=== PATIENT | female | born 1985 | race Two or more races ===

== ENCOUNTER → 2024-05-27 | Outpatient (BNVA) | payer BC, SELFPAY | END | disposition home or self-care (01) | PROVIDERS: PCP Registered Nurse; Referring Provider Registered Nurse; Visit Provider Urology | DX: N20.0 Calculus of kidney (principal); Z87.440 Personal history of urinary (tract) infections; E66.9 Obesity, unspecified; Z68.28 Body mass index [BMI] 28.0-28.9, adult | CPT/HCPCS: 81003; 99212; G0463 ==

== ENCOUNTER → 2024-06-21 | Outpatient (CLI) | payer BC, SELFPAY ==
--- NOTE | 2024-06-21 13:00 | XR_ITS ---
Examination: Retroperitoneal ultrasound, complete Technique: Multiple high resolution grayscale images of the retroperitoneum obtained, including kidneys and bladder. Exam date and time:June 21, 2024 1326 hours INDICATIONS: Flank pain 2 months FINDINGS: Right kidney 10.6 cm renal cortex 2.5 cm Midpole 5 mm calculus Left kidney 11.4 cm cortex 2.3 cm Lower pole 0.75 cm calculus No hydronephrosis No bladder mass Contracted urinary bladder IMPRESSION: Bilateral nonobstructing renal calculi
[2024-06-21 14:42] LABS: Alanine Aminotransferase 39 U/L (10-49); Albumin, Serum 4.8 gm/dL (3.5-5.0); Alkaline Phosphatase 76 U/L (46-116); Anion Gap 8 (7-16); Aspartate Amino Transferase 29 U/L (0-34); BUN/Creatinine Ratio 13 Ratio (12-20); Bilirubin,Total 0.2 mg/dL (0.3-1.2); Blood Urea Nitrogen 10 mg/dL (9-23); Calcium 9.6 mg/dL (8.3-10.6); Calcium (Corrected) 9.6 mg/dL (8.5-10.1); Carbon Dioxide 29.1 mMol/L (20.0-31.0); Chloride 100 mMol/L (98-107); Creatinine (Component) 0.8 mg/dL (0.6-1.3); Globulin 2.4 gm/dL (2.3-3.5); Glucose 90 mg/dL (74-106); Osmolality,Calculated 272 (275-295); Potassium 4.1 mMol/L (3.4-5.1); Sodium 137 mMol/L (136-145); Total Protein 7.2 gm/dL (5.7-8.2); eGFR > 60 See Note
== END | disposition home or self-care (01) ==
LOC: CDIM 12:46 → COPL 13:45
PROVIDERS: PCP Registered Nurse; Referring Provider Urology; Visit Provider Urology
DX: N20.0 Calculus of kidney (principal)
CPT/HCPCS: 36415; 76770; 80053

== ENCOUNTER 2024-09-08 09:25 | Emergency (ER) | payer BC, MEDICAID, SELFPAY ==
[2024-09-08 09:37] VITALS: BP 156/92; PULSE 67; RESP 17; TEMP 36; O2SAT 100
[2024-09-08 09:48] VITALS: BMI 28.7
--- NOTE | 2024-09-08 09:58 | XR_ITS ---
Examination: CT abdomen and pelvis without contrast. Coronal 3-D reconstructions. Sagittal 2-D reconstructions. Date and time of exam:September 08, 2025 1158 hrs. Comparison April 2023 Indications: Intermittent flank pain several days CTDI: vol (mGy): 10.3 DLP: (mGycm): 545 Technique: Axial images of the abdomen have been obtained, 3 mm slice thickness Intravenous contrast material has not been administered. Low dose protocols were performed. One or more of the following dose reduction techniques were used; automated exposure control, adjustment of the mA and/or KV according to patient size, use of iterative reconstruction technique. Findings: No focal liver or splenic lesions Gallbladder wall is thickened with tiny gallstones No pancreatic mass Bilateral renal calculi, the largest 5 mm in the lower pole left kidney No hydronephrosis or ureteral calculi Small fat-containing umbilical hernia Normal appendix No bowel obstruction Contracted urinary bladder 3 mm L5-S1 central lumbar disc bulge Impression: Recommend hepatobiliary sonography to confirm calculus cholecystitis Bilateral nonobstructing renal calculi Normal appendix No bowel obstruction
[2024-09-08 09:59] VITALS: PULSE 66; RESP 21; O2SAT 99
[2024-09-08 10:00] VITALS: BP 168/81; PULSE 64; RESP 14; O2SAT 100
[2024-09-08] MEDS: KETOROLAC INJ 30 MG/ML VIAL 15 MG IVP ×2 (10:10→15:36)
[2024-09-08] MEDS: ONDANSETRON INJ 2 MG/ML INJ 2 ML 8 MG IVP (10:12)
[2024-09-08] MEDS: HYDROmorphone INJ 2 MG/ML VIAL 0.5 MG IVP (10:13)
[2024-09-08] MEDS: SODIUM CHLORIDE 0.9% 1000 ML 1,000 ML 999 ML IV (10:14)
[2024-09-08 10:23] LABS: Basophils % (Auto) 0 % (0-2.5); Eosinophils # (Auto) 0.1 Thou/mm3 (0.0-0.5); Eosinophils % (Auto) 1 % (0-10); Hematocrit 37.9 % (36.0-46.0); Hemoglobin 13.3 g/dL (12.0-16.0); Immature Granulocytes % (Auto) 0 % (0-0); Immature Granulocytes Auto 0.02 Thou/mm3 (0.00-0.00); Lymphocytes # (Auto) 2.1 Thou/mm3 (1.0-4.8); Lymphocytes % (Auto) 17 % (10-50); Mean Corpuscular HGB Conc 35.1 g/dl (31.0-37.0); Mean Corpuscular Hemoglobin 30.2 pg (25.0-35.0); Mean Corpuscular Volume 86 fL (80-100); Monocytes # (Auto) 0.7 Thou/mm3 (0.0-0.8); Monocytes % (Auto) 6 % (0-12); Neutrophils # (Auto) 9.3 Thou/mm3 (1.8-7.7); Neutrophils % (Auto) 76 % (37-80); Nucleated Red Blood Cell % 0 /100 WBC (0); Platelet Count 270 Thou/mm3 (140-440); RDW Standard Deviation 38.3 fL (36.4-46.3); Red Blood Count 4.41 Miln/mm3 (4.00-5.20); White Blood Count 12.2 Thou/mm3 (3.6-11.0)
[2024-09-08 10:33] LABS: HCG,Qualitative Serum Negative
--- NOTE | 2024-09-08 10:37 | PD.EDABDPN ---
ED Abdominal Pain RME/HPI General Chief Complaint: Abdominal Pain Stated complaint: VOMITING, EXTREME PAIN RLQ ABD SINCE 6AM Time seen by provider: 09/08/24 09:56 Arrival date/time: 09/08/24 09:25 Limitations: no limitations RME / HPI RME / HPI narrative: 38 year old female with history of kidney stones presents to the ED for evaluation of right flank pain beginning at 06:00 AM today. Pain described as colicky in sensation, located most to the right flank with radiation around to right lower abdomen, rating as moderate-severe. Accompanied by nausea and vomiting. Reports pain today is similar to previous episode of kidney stones. Denies fevers, chills, sweats, diarrhea, hematuria, or dysuria. Related Data Home Medications ?Medication ?Instructions ?Recorded ?Confirmed lansoprazole 30 mg capsule,delayed 30 mg PO QDAY 07/28/19 05/27/24 release cetirizine 10 mg tablet (Zyrtec) 10 mg PO QDAY PRN 07/13/23 05/27/24 hydroxyzine HCl 25 mg tablet 25 mg PO QHS PRN 07/13/23 05/27/24 nitrofurantoin 100 mg PO QDAY 07/13/23 05/27/24 monohydrate/macrocrystals 100 mg capsule (Macrobid) venlafaxine 150 mg 150 mg PO QDAY 07/13/23 05/27/24 capsule,extended release 24 hr (Effexor XR) Allergies Allergy/AdvReac Type Severity Reaction Status Date / Time latex Allergy Intermediate Rash Verified 09/08/24 09:49 Review of Systems Review of Systems Systems Reviewed: All systems reviewed, normal except as documented Past Medical History Past Medical History GASTROINTESTINAL: Positive Gastroesophageal Reflux Disease GENITOURINARY: Positive Kidney Stones Family History FAMILY HISTORY: Positive Family Cardiac Disorders Social History SMOKING STATUS: Never smoker SUBSTANCE USE: does not use ED Exam General Limitations: Present no limitations General appearance: Present alert and other (appears to be in pain) Head Head exam: Present atraumatic Eye Eye exam: Present normal appearance, PERRL and EOMI ENT ENT exam: Present normal exam, normal oropharynx and mucous membranes moist Neck Neck exam: Present normal inspection, full ROM and trachea midline Chest Chest inspection: Present normal inspection and symmetric chest wall rise Respiratory Respiratory exam: Present normal lung sounds bilaterally Cardiovascular Cardiovascular exam: Present regular rate, normal rhythm and normal heart sounds Abdominal Exam Abdominal exam: Present soft, tenderness (right flank tenderness to palpation ) and normal bowel sounds Extremities Exam Extremities exam: Present normal inspection and full ROM Back Exam Back exam: Present normal inspection and full ROM Neurological Exam Neurological exam: Present alert, oriented X3 and CN II-XII intact Psychiatric Psychiatric exam: Present normal affect and normal mood Skin Skin exam: Present warm, dry, intact and normal color Course Quality Measures none Orders Category Date Time Status Wind Field Manager NOW Care 09/08/24 09:59 Active Continuous Pulse Oximetry NOW Care 09/08/24 09:59 Completed Insert IV NOW Care 09/08/24 09:[address] abdomen pelvis wo con Stat Exams 09/08/24 09:58 Completed US gall bladder Stat Exams 09/08/24 14:03 Taken CBC Stat Lab 09/08/24 10:09 Completed Comprehensive Metabolic Panel Stat Lab 09/08/24 10:09 Completed HCG,Qualitative Serum Stat Lab 09/08/24 10:09 Completed Partial Thromboplastin Time Stat Lab 09/08/24 10:09 Completed Prothrombin Time with INR Stat Lab 09/08/24 10:09 Completed Urinalysis Stat Lab 09/08/24 11:45 Completed HYDROmorphone INJ [Dilaudid Inj] Med 09/08/24 09:58 Discontinued 0.5 mg IVP X1 ONE Ketorolac Inj [Toradol Inj] Med 09/08/24 10:00 Discontinued 15 mg IVP X1 ONE Ketorolac Inj [Toradol Inj] Med 09/08/24 15:23 Discontinued 15 mg IVP X1 ONE Ondansetron Inj [Zofran Inj] Med 09/08/24 15:23 Discontinued 4 mg IVP X1 ONE Ondansetron Inj [Zofran Inj] Med 09/08/24 09:58 Discontinued 8 mg IVP X1 ONE Sodium Chloride 0.9% 1000 ml [Ns] 1,000 ml Med 09/08/24 09:58 Discontinued IV 999 mls/hr Vital Signs Vital signs: Vital Signs Temperature 96.8 F 09/08/24 09:37 Pulse Rate 67 09/08/24 09:37 Respiratory Rate 17 09/08/24 09:37 Blood Pressure 156/92 H 09/08/24 09:37 Pulse Oximetry (%) 100 09/08/24 09:37 Oxygen Delivery Method Room Air 09/08/24 09:37 Pulse ox is 100% on room air which is adequate. Abdominal Pain MDM MDM Narrative MDM Narrative:: I, Christinapili Castaneda, enzo scribing for and in the presence of Dr. Garcia. The patients pain resolved after pain medications. CT abdomen pelvis did not show any ureteral stones and recommended ultrasound for cholelithiasis. The ultrasound performed shows acute cholelithiasis without evidence of cholecystitis. Patient data External records reviewed:: [facility] previous records (I reviewed ED Visit on 08/01/2019 for kidney stone ) Clinical information provided by:: patient Social determinants that could affect healthcare access:: none Patient has the following chronic illnesses:: Kidney stone How is presenting disease/condition affected by chronic disease/condition?: exacerbated by Evaluation data The following diagnostics were reviewed and interpreted by me:: lab results and radiology exam(s) (Preliminary ultrasound report- GB wall with edema, GB fundus multiple stones, largest measuring 1.1cm, CBD no stones seen, fatty texture smooth contour, pancreas 2.2cm at pancreatic head. ) Lab and/or radiology exams considered but not ordered:: None Interpretation Summary: Ordering Physician: Ivan Garcia MD Date of Service: 09/08/24 Procedure(s): CT abdomen pelvis wo [facility] Accession Number(s): [id number] cc: Ivan Garcia MD; Bernardo Hooker MD; NO PRIMARY/FAMILY,PHYSICIAN~ Examination: CT abdomen and pelvis without contrast. Coronal 3-D reconstructions. Sagittal 2-D reconstructions. Date and time of exam:September 08, 2025 1158 hrs. Comparison April 2023 Indications: Intermittent flank pain several days CTDI: vol (mGy): 10.3 DLP: (mGycm): 545 Technique: Axial images of the abdomen have been obtained, 3 mm slice thickness Intravenous contrast material has not been administered. Low dose protocols were performed. One or more of the following dose reduction techniques were used; automated exposure control, adjustment of the mA and/or KV according to patient size, use of iterative reconstruction technique. Findings: No focal liver or splenic lesions Gallbladder wall is thickened with tiny gallstones No pancreatic mass Bilateral renal calculi, the largest 5 mm in the lower pole left kidney No hydronephrosis or ureteral calculi Small fat-containing umbilical hernia Normal appendix No bowel obstruction Contracted urinary bladder 3 mm L5-S1 central lumbar disc bulge Impression: Recommend hepatobiliary sonography to confirm calculus cholecystitis Bilateral nonobstructing renal calculi Normal appendix No bowel obstruction Dictated By: Bernardo Hooker MD Signed By: <Electronically signed by Bernardo Hooker MD in OV> 09/08/24 1358 Medications / Prescriptions Medications or Prescriptions considered but not ordered:: None Medication administrations:: Medication Administration History Discontinued Medications Hydromorphone HCl (Hydromorphone Inj 2 Mg/Ml Vial) 0.5 mg IVP X1 ONE Stop: 09/08/24 09:59 Last Admin: 09/08/24 10:13 Dose: 0.5 mg Documented By: CG Comments: 2 Sodium Chloride (Ns) 1,000 mls @ 999 mls/hr IV .Q1H1M ONE Stop: 09/08/24 10:58 Last Infusion: 09/08/24 10:57 Dose: Infused Documented By: Admin: 09/08/24 10:14 Dose: 999 mls/hr Documented By: CG Ketorolac Tromethamine (Ketorolac Inj 30 Mg/Ml Vial) 15 mg IVP X1 ONE Stop: 09/08/24 10:01 Last Admin: 09/08/24 10:10 Dose: 15 mg Documented By: CG Ketorolac Tromethamine (Ketorolac Inj 30 Mg/Ml Vial) 15 mg IVP X1 ONE Stop: 09/08/24 15:24 Last Admin: 09/08/24 15:36 Dose: 15 mg Documented By: CG Ondansetron HCl (Ondansetron Inj 2 Mg/Ml Inj 2 Ml) 8 mg IVP X1 ONE; Protocol Stop: 09/08/24 09:59 Last Admin: 09/08/24 10:12 Dose: 8 mg Documented By: CG Ondansetron HCl (Ondansetron Inj 2 Mg/Ml Inj 2 Ml) 4 mg IVP X1 ONE; Protocol Stop: 09/08/24 15:24 See above Consultations Consultation(s) initiated? (list below): No Diagnosis Differential diagnosis abdominal pain: abdominal pain, calculus of kidney and constipation Most likely diagnosis given after review of the tests above:: Acute cholelithiasis Admission Indicated Admission indicated?: not indicated Admission Request Was there a request for admission?: No Disposition Plan Disposition Plan: Discharge Discharge Attestation Discharge Attestation: The patient and all family members were given an opportunity to ask questions and understood the discharge instructions. Discharge instructions specifically effects, indications for sooner follow up or return to the emergency department, and the expected course of current diagnosis. Patient condition: Stable Discharge Plan Plan Patient Disposition: HOME (Self Care) Prescriptions/Referrals Prescriptions/Med Rec: No Action cetirizine [Zyrtec] 10 mg tablet 10 mg PO QDAY PRN hydroxyzine HCl 25 mg tablet 25 mg PO QHS PRN venlafaxine [Effexor XR] 150 mg capsule,extended release 24hr 150 mg PO QDAY nitrofurantoin monohyd/m-cryst [Macrobid] 100 mg capsule 100 mg PO QDAY Rx Instructions: must administer with a meal/food lansoprazole 30 mg Capsule,Delayed Release(Dr/Ec) 30 mg PO QDAY Referrals: No Primary/Family,Physician [Primary Care Provider] - In 1 week Problem List Clinical Impression: Cholelithiasis Patient/Caregiver Discharge Instructions Education Materials: What Are Gallstones, Treating Gallstones, ED Gallstones with Biliary Colic Additional Instructions: Follow-up with your primary care doctor in 3 to 5 days for recheck. Consider referals to general surgeon for cholelithiasis. Also, ask your campus coordinator if there are ways to reduce your risk of kidney stones by decreasing the amount of calcium excreted in your urine. You can return to the emergency department sooner if symptoms worsen or if you notice any new, concerning issues. Print Language: Urdu Stand Alone Forms: Amy Award Info., Patient Portal Info Letter
[2024-09-08 10:40] LABS: Alanine Aminotransferase 24 U/L (10-49); Albumin/Globulin Ratio 2.2 (1.2-2.2); Alkaline Phosphatase 77 U/L (46-116); Anion Gap 11 (7-16); Aspartate Amino Transferase 22 U/L (0-34); BUN/Creatinine Ratio 8 Ratio (12-20); Bilirubin,Total 0.4 mg/dL (0.3-1.2); Blood Urea Nitrogen 6 mg/dL (9-23); Calcium 9.8 mg/dL (8.3-10.6); Calcium (Corrected) 9.8 mg/dL (8.5-10.1); Carbon Dioxide 25.7 mMol/L (20.0-31.0); Chloride 105 mMol/L (98-107); Creatinine (Component) 0.8 mg/dL (0.6-1.3); Estimated Creatinine Clearance 118.8 mL/min (>60); Globulin 2.3 gm/dL (2.3-3.5); Glucose 122 mg/dL (74-106); Osmolality,Calculated 281 (275-295); Potassium 3.7 mMol/L (3.4-5.1); Sodium 142 mMol/L (136-145); Total Protein 7.3 gm/dL (5.7-8.2); eGFR > 60 See Note
[2024-09-08 10:41] LABS: INR 1.1 (0.9-1.3); Partial Thromboplastin Time 26.4 Seconds (22.0-36.0); Prothrombin Time 11.6 Seconds (9.0-12.2)
[2024-09-08 11:54] LABS: Collection Type, Urine Clean Catch
[2024-09-08 12:02] LABS: Bilirubin,Urine Negative (Negative); Blood,Urine Negative (Negative); Clarity,Urine Clear (Clear/Hazy); Color,Urine Lt-Yellow (Lt Yel-Yel); Glucose, Urine Negative (Negative); Ketones,Urine 1+ (Negative); Leukocyte Esterase,Urine Negative (Negative); Nitrite,Urine Negative (Negative); Protein,Urine Trace (Neg - Trace); RBC,Urine 3 /hpf (0-3); Specific Gravity,Urine 1.021 (1.001-1.035); Squamous Epithelial Cell,Urine 1 /hpf (0-5); Urobilinogen,Urine Negative mg/dL (0.0-1.0); WBC,Urine 1 /hpf (0-5)
[2024-09-08 12:31] VITALS: BP 107/70; PULSE 58; RESP 12; TEMP 36.2; O2SAT 95
[2024-09-08 14:00] VITALS: BP 113/64; PULSE 50; RESP 19; TEMP 36.6; O2SAT 96
--- NOTE | 2024-09-08 14:03 | XR_ITS ---
Examination: Abdomen sonogram, Limited Date and time of exam: September 08, 2024 1456 hrs. Indications: Right upper abdominal pain and vomiting beginning one week ago Technique: Real-time montero scale transabdominal sonographic images of the upper abdomen obtained. Findings: Multiple gallstones Gallbladder wall is thickened 0.4 cm with edema Common bile duct 0.3 cm Pancreatic head 2.2 cm Hepatomegaly 19.2 cm fatty infiltration no focal liver lesions Normal hepatopedal portal venous flow Patent IVC Impression: Acute calculus cholecystitis
[2024-09-08] MEDS: ONDANSETRON INJ 2 MG/ML INJ 2 ML 4 MG IVP (15:46)
[2024-09-08 15:58] VITALS: PULSE 82; RESP 18; TEMP 36.2; O2SAT 99
== END 2024-09-08 16:00 | disposition home or self-care (01) ==
PROVIDERS: Emergency Provider Family Medicine
DX: K80.70 Calculus of gallbladder and bile duct without cholecystitis without obstruction (principal); N20.0 Calculus of kidney
CPT/HCPCS: 36415; 74176; 76705; 80053; 81001; 84703; 85025; 85610; 85730; 96361; 96374; 96375; 96376; 99284; J1171; J1885; J2405; J7030

== ENCOUNTER 2024-09-09 16:07 | Emergency (ER) | payer BC, MEDICAID, SELFPAY ==
[2024-09-09 16:22] VITALS: BP 133/90; PULSE 62; RESP 18; TEMP 36.8; O2SAT 99; BMI 28.7
--- NOTE | 2024-09-09 16:33 | PD.EDRME ---
Rapid Medical Screening Exam RME Arrival date/time: 09/09/24 16:07 38-year-old female presents to the Emergency Department today for complaints of right-sided abdominal pain patient was evaluated yesterday for the same patient reports symptoms have persisted Chief Complaint: Abdominal Pain Vital signs: Vital Signs Temperature 98.2 F 09/09/24 16:22 Pulse Rate 62 09/09/24 16:22 Respiratory Rate 18 09/09/24 16:22 Blood Pressure 133/90 H 09/09/24 16:22 Pulse Oximetry (%) 99 09/09/24 16:22 Oxygen Delivery Method Room Air 09/09/24 16:22
[2024-09-09] MEDS: ONDANSETRON ODT 4 MG TABRAP PO ×2 (16:38→20:18)
[2024-09-09] MEDS: KETOROLAC INJ 30 MG/ML VIAL IM (16:39)
[2024-09-09 16:52] LABS: Basophils % (Auto) 0 % (0-2.5); Eosinophils % (Auto) 1 % (0-10); Hematocrit 33.6 % (36.0-46.0); Hemoglobin 11.6 g/dL (12.0-16.0); Immature Granulocytes % (Auto) 0 % (0-0); Immature Granulocytes Auto 0.02 Thou/mm3 (0.00-0.00); Lymphocytes # (Auto) 1.5 Thou/mm3 (1.0-4.8); Lymphocytes % (Auto) 22 % (10-50); Mean Corpuscular HGB Conc 34.5 g/dl (31.0-37.0); Mean Corpuscular Hemoglobin 30.1 pg (25.0-35.0); Mean Corpuscular Volume 87 fL (80-100); Monocytes # (Auto) 0.4 Thou/mm3 (0.0-0.8); Monocytes % (Auto) 6 % (0-12); Neutrophils # (Auto) 5.2 Thou/mm3 (1.8-7.7); Neutrophils % (Auto) 72 % (37-80); Nucleated Red Blood Cell % 0 /100 WBC (0); Platelet Count 204 Thou/mm3 (140-440); RDW Standard Deviation 39.5 fL (36.4-46.3); Red Blood Count 3.86 Miln/mm3 (4.00-5.20); White Blood Count 7.2 Thou/mm3 (3.6-11.0)
[2024-09-09 17:19] LABS: Alanine Aminotransferase 22 U/L (10-49); Albumin, Serum 4.3 gm/dL (3.5-5.0); Alkaline Phosphatase 62 U/L (46-116); Anion Gap 10 (7-16); Aspartate Amino Transferase 21 U/L (0-34); BUN/Creatinine Ratio 6 Ratio (12-20); Bilirubin,Total 0.4 mg/dL (0.3-1.2); Blood Urea Nitrogen < 5 mg/dL (9-23); Calcium 9.1 mg/dL (8.3-10.6); Calcium (Corrected) 9.1 mg/dL (8.5-10.1); Carbon Dioxide 26.9 mMol/L (20.0-31.0); Chloride 105 mMol/L (98-107); Creatinine (Component) 0.8 mg/dL (0.6-1.3); Estimated Creatinine Clearance 118.8 mL/min (>60); Globulin 2.1 gm/dL (2.3-3.5); Glucose 110 mg/dL (74-106); Lipase 34 U/L (12-53); Osmolality,Calculated 281 (275-295); Potassium 3.6 mMol/L (3.4-5.1); Sodium 142 mMol/L (136-145); Total Protein 6.4 gm/dL (5.7-8.2); eGFR > 60 See Note
[2024-09-09 19:51] VITALS: BP 135/77; PULSE 61; RESP 18; TEMP 36.8; O2SAT 100
--- NOTE | 2024-09-09 19:57 | PD.EDABDPN ---
ED Abdominal Pain RME/HPI General Chief Complaint: Abdominal Pain Stated complaint: nausea/vomiting Time seen by provider: 09/09/24 19:43 Arrival date/time: 09/09/24 16:07 Source: patient Mode of arrival: ambulatory Limitations: no limitations RME / HPI RME / HPI narrative: 09/09/24 16:07 38-year-old female presents to the Emergency Department today for complaints of right-sided abdominal pain patient was evaluated yesterday for the same patient reports symptoms have persisted. Patient states she has had this pain for a number of years. She is followed by her primary care provider and is also seen urology in the past for history of kidney stones. She has had prior urethral stenting. MD complaint: abdominal pain Related Data Home Medications ?Medication ?Instructions ?Recorded ?Confirmed lansoprazole 30 mg capsule,delayed 30 mg PO QDAY 07/28/19 05/27/24 release cetirizine 10 mg tablet (Zyrtec) 10 mg PO QDAY PRN 07/13/23 05/27/24 hydroxyzine HCl 25 mg tablet 25 mg PO QHS PRN 07/13/23 05/27/24 nitrofurantoin 100 mg PO QDAY 07/13/23 05/27/24 monohydrate/macrocrystals 100 mg capsule (Macrobid) venlafaxine 150 mg 150 mg PO QDAY 07/13/23 05/27/24 capsule,extended release 24 hr (Effexor XR) Previous Rx's ?Medication ?Instructions ?Recorded hydrocodone 5 mg-acetaminophen 325 1 tab PO Q8H PRN pain #10 tabs 09/09/24 mg tablet Allergies Allergy/AdvReac Type Severity Reaction Status Date / Time latex Allergy Intermediate Rash Verified 09/09/24 16:12 ED Exam General Limitations: Present no limitations Course Quality Measures none Orders Category Date Time Status CBC Stat Lab 09/09/24 16:38 Completed Comprehensive Metabolic Panel Stat Lab 09/09/24 16:38 Completed Lipase Stat Lab 09/09/24 16:38 Completed HYDROcodone*/APAP 5/325 [[place] 5/325] Med 09/09/24 19:57 Discontinued 1 tab PO X1 ONE Ketorolac Inj [Toradol Inj] Med 09/09/24 16:28 Discontinued 30 mg IM X1 ONE Ondansetron Odt [Zofran Odt] Med 09/09/24 16:28 Discontinued 4 mg PO X1 ONE Ondansetron Odt [Zofran Odt] Med 09/09/24 20:09 Discontinued 4 mg PO X1 ONE Vital Signs Vital signs: Vital Signs Temperature 98.2 F 09/09/24 16:22 Pulse Rate 62 09/09/24 16:22 Respiratory Rate 18 09/09/24 16:22 Blood Pressure 133/90 H 09/09/24 16:22 Pulse Oximetry (%) 99 09/09/24 16:22 Oxygen Delivery Method Room Air 09/09/24 16:22 Abdominal Pain MDM MDM Narrative MDM Narrative:: 38 year old female with chronic right sided abdominal pain was seen here yesterday and found to have gallstones. Labs today reassuring. Will dishcharge for outpatient follow up with general surgery. Return precaustions discussed. Patient data External records reviewed:: [facility] previous records Clinical information provided by:: patient Social determinants that could affect healthcare access:: none Patient has the following chronic illnesses:: chronic abdomen pain How is presenting disease/condition affected by chronic disease/condition?: exacerbated by Evaluation data The following diagnostics were reviewed and interpreted by me:: lab results Lab and/or radiology exams considered but not ordered:: n/a Interpretation Summary: No leukocystosis, or elevated liver enzymes. Medications / Prescriptions Medications or Prescriptions considered but not ordered:: n/a Medication administrations:: Medication Administration History Discontinued Medications Hydrocodone Bitart/Acetaminophen (Hydrocodone/Apap 5/325 Tablet) 1 tab PO X1 ONE Stop: 09/09/24 19:58 Last Admin: 09/09/24 20:18 Dose: 1 tab Documented By: JOHN Ketorolac Tromethamine (Ketorolac Inj 30 Mg/Ml Vial) 30 mg IM X1 ONE Stop: 09/09/24 16:29 Last Admin: 09/09/24 16:39 Dose: 30 mg Documented By: JOHN Ondansetron HCl (Ondansetron Odt 4 Mg Tabrap) 4 mg PO X1 ONE; Protocol Stop: 09/09/24 16:29 Last Admin: 09/09/24 16:38 Dose: 4 mg Documented By: JOHN Ondansetron HCl (Ondansetron Odt 4 Mg Tabrap) 4 mg PO X1 ONE; Protocol Stop: 09/09/24 20:10 Last Admin: 09/09/24 20:18 Dose: 4 mg Documented By: KF See above Consultations Consultation(s) initiated? (list below): No Diagnosis Differential diagnosis abdominal pain: abdominal pain, calculus of kidney, diverticulitis and gastroenteritis Most likely diagnosis given after review of the tests above:: Cholelithiasis Admission Indicated Admission indicated?: not indicated Admission Request Was there a request for admission?: No Disposition Plan Disposition Plan: Discharge Discharge Attestation Discharge Attestation: The patient and all family members were given an opportunity to ask questions and understood the discharge instructions. Discharge instructions specifically effects, indications for sooner follow up or return to the emergency department, and the expected course of current diagnosis. Patient condition: Stable Discharge Plan Plan Patient Disposition: HOME (Self Care) Patient condition on transfer: Stable Prescriptions/Referrals Prescriptions/Med Rec: New hydrocodone-acetaminophen 5-325 mg tablet 1 tab PO Q8H MDD 3 PRN (Reason: pain) Qty: 10 0RF No Action cetirizine [Zyrtec] 10 mg tablet 10 mg PO QDAY PRN hydroxyzine HCl 25 mg tablet 25 mg PO QHS PRN venlafaxine [Effexor XR] 150 mg capsule,extended release 24hr 150 mg PO QDAY nitrofurantoin monohyd/m-cryst [Macrobid] 100 mg capsule 100 mg PO QDAY Rx Instructions: must administer with a meal/food lansoprazole 30 mg Capsule,Delayed Release(Dr/Ec) 30 mg PO QDAY Referrals: Stacy Lozano, TECHNICAL TESTING ENGINEER [Primary Care Provider] - In 1 week Problem List Clinical Impression: Cholelithiasis Patient/Caregiver Discharge Instructions Education Materials: What Are Gallstones, Treating Gallstones Additional Instructions: Avoid fatty and greasy foods. Use the provided medication as prescribed. Follow up with your primary doctor. Follow up with general surgery. Contact Dr. Patel's office to schedule a follow up appoitment. General & Colorectal Surgery [address] [address] tel: Return here as needed for any emergent changes. Print Language: Divehi Stand Alone Forms: Amy Award Info., Patient Portal Info Letter
[2024-09-09] MEDS: HYDROcodone/APAP 5/325 TABLET 1 TAB PO (20:18)
== END 2024-09-09 20:25 | disposition home or self-care (01) ==
PROVIDERS: Nurse Practitioner Primary Care; Emergency Provider Emergency Medicine; PCP Registered Nurse
DX: K80.20 Calculus of gallbladder without cholecystitis without obstruction (principal)
CPT/HCPCS: 36415; 80053; 83690; 85025; 96372; 99283; J1885; Q0162; A9270

== ENCOUNTER 2024-09-12 10:02 | Outpatient (AMB) | payer MEDICAID, BC, SELFPAY ==
[2024-09-12 10:19] VITALS: BP 125/83; PULSE 82; RESP 18; O2SAT 96; BMI 27.8
--- NOTE | 2024-09-12 10:19 | PD.GSCLVISIT ---
Vital Signs - [facility] 09/12/24 10:19 Height 1.78 m Height Method Stated Weight 87.997 kg Weight Measurement Method Standing Scale BMI 27.8 BP 125/83 Blood Pressure Source Automatic Cuff Blood Pressure Location Right Upper Arm Position Sitting Respiration 18 Pulse 82 Pulse Source Monitor Pulse Oximetry (%) 96 Oxygen Delivery Method Room Air Med/Allergies Allergies & Medications Allergies latex Allergy (Intermediate, Verified 09/12/24 10:21) Rash Medication Reconciliation hydrocodone 5 mg-acetaminophen 325 mg tablet 1 tab PO Q8H PRN pain #10 tabs 09/09/24 [Rx Confirmed 09/12/24] MA Intake Visit Data Collection New Patient or Established: Established Patient (seen at [facility] within 3 years) Reason for Visit:: F/U CHOLESTITIS Pain Present Currently: Yes Pain Location: Abdomen Pain scale:: 10 Pain Scale Used: [place]anes[place]andelariaGuallpa/Numerical Nursery Teacher Required: No PCP or OBGYN visit in last 3 months: Yes Hx Now: No Do You Feel Safe at Home: Yes Authorities Contacted: N/A Smoking Status Smoking Status: Never smoker Immunization / Flu Flu Vaccine in the Last 12 Months: No Flu Vaccine Exclusion Criteria: No Exclusion Criteria Past Medical History Past Medical History NEUROLOGIC: Negative Neurological Disorders CARDIAC: Negative Cardiac Disorders or Congestive Heart Failure RESPIRATORY: Negative Chronic Obstructive Pulmonary Disease (COPD) GASTROINTESTINAL: Positive Gastroesophageal Reflux Disease GENITOURINARY: Positive Kidney Stones; Negative Genitourinary Disorders or Renal Disease REPRODUCTIVE: Negative Breast Cancer MUSCULOSKELETAL: Negative Musculoskeletal Disorders ENDOCRINE: Negative Diabetes Mellitus Type 1 or Diabetes Mellitus Type 2 OTHER HISTORY: Negative MRSA, Clostridium Difficile or Breast Cancer Family History FAMILY HISTORY: Positive Family Cardiac Disorders Social History SMOKING STATUS: Smoking status: Never smoker SUBSTANCE USE: Substance use type: does not use ALCOHOL: Alcohol Intake: Never HOUSING: Housing: House LIVES WITH: Lives With: Family Travel Risk Travel Hx Recent Travel: No HPI HPI Narrative 38F referred for cholecystitis. Pt states for the past 3 months she has had RUQ pain that is worse after eating, associated with nausea/vomiting and making it difficult for her to perform her usual activities. Pt went to the ER twice in the past week and was advised she had gallstones, and then went to her PCP who prescribed her antibiotics for her cholecystitis. At the moment pain is controlled but she is taking norco PRN PMH: Depression, GERD PSHx: Ureteral stent for kidney stones which has been removed Meds: No antiplt or anticoagulation Allergies: Latex Social hx: no cigarette smoking ROS Review of Systems Systems Reviewed: All systems reviewed, normal except as documented Objective/Exam General General Appearance: alert, cooperative and well groomed Resp Respiratory exam: Absent respiratory distress Abdominal Abdominal exam: Present soft; Absent distention or tenderness Results CT, US reviewed Assessment & Plan Diagnosis / Problem List (1) Acute cholecystitis: Status: Acute Assessment & Plan: 38F presenting with acute cholecystitis, symptoms controlled on antibiotics. I explained that surgery is recommended to prevent future attacks and enumerated risks including need for conversion to open, bleeding, infection, injury to nearby structures requiring further procedures or major biliary reconstruction which would require transfer to another hospital, as well as postoperative hernia and diarrhea. All questions were answered and pt agrees to proceed Plan: Lap tramaine KALEB (2) Umbilical hernia: Status: Acute Assessment & Plan: As pt has a small umbilical hernia I will plan on primary repair during cholecystectomy Office Procedures GNS Level of Care Nursing/Assessment Patient Status: Established Patient Nursing Assessment/Reassesment: Medication Reconciliation, Update PMH in EMR and Vital Signs Coordination of Care: Complex Care and Chronic Disease 1-5, Education Complex Pt/Fam, Consent,records obtained, informed consent, Lab and Imaging orders, Results/Orders obtained and Staff clarify orders Established Patient Charge Established Patient Point Assignment: 110 Established Patient Point Charge: EP Level 3 (80-115) Patient Portal Questionaires Social History Living Situation History Housing: House Tobacco History Smoking Status: Never smoker Alcohol History Alcohol Intake: Never Domestic Abuse History Do You Feel Safe at Home: Yes Review of Systems Report any current symptoms Only answer those that you have currently: Past Medical History Past Medical History Have you ever been diagnosed with any of the following: Cardiology Problems Congestive Heart Failure: No Respiratory Problems Chronic Obstructive Pulmonary Disease (COPD): No Stomache/Intestinal Problems Gastroesophageal Reflux Disease: Yes Genital/Urinary Problems Renal Disease: No Kidney Stones: Yes Reproductive Problems Breast Cancer: No Endocrine Problems Diabetes Mellitus Type 1: No Diabetes Mellitus Type 2: No Other Problems MRSA: No Clostridium Difficile: No
== END 2024-09-12 11:17 | disposition home or self-care (01) ==
LOC: HODSRG 10:02
PROVIDERS: PCP Registered Nurse; Referring Provider Registered Nurse; Supervising Provider Surgery; Visit Provider Surgery
DX: K81.0 Acute cholecystitis (principal); K42.9 Umbilical hernia without obstruction or gangrene
CPT/HCPCS: 99213; G0463

== ENCOUNTER 2024-09-18 08:25 | Day surgery (SDC) | payer BC, MEDICAID, SELFPAY ==
[2024-09-17 09:27] VITALS: BMI 28.9
[2024-09-17 10:35] LABS: Basophils % (Auto) 0 % (0-2.5); Eosinophils # (Auto) 0.1 Thou/mm3 (0.0-0.5); Eosinophils % (Auto) 1 % (0-10); Hemoglobin 13.3 g/dL (12.0-16.0); Immature Granulocytes % (Auto) 0 % (0-0); Immature Granulocytes Auto 0.01 Thou/mm3 (0.00-0.00); Lymphocytes # (Auto) 2.4 Thou/mm3 (1.0-4.8); Lymphocytes % (Auto) 32 % (10-50); Mean Corpuscular Hemoglobin 30.2 pg (25.0-35.0); Mean Corpuscular Volume 86 fL (80-100); Monocytes # (Auto) 0.6 Thou/mm3 (0.0-0.8); Monocytes % (Auto) 8 % (0-12); Neutrophils # (Auto) 4.3 Thou/mm3 (1.8-7.7); Neutrophils % (Auto) 59 % (37-80); Nucleated Red Blood Cell % 0 /100 WBC (0); Platelet Count 228 Thou/mm3 (140-440); RDW Standard Deviation 39.3 fL (36.4-46.3); Red Blood Count 4.41 Miln/mm3 (4.00-5.20); White Blood Count 7.3 Thou/mm3 (3.6-11.0)
[2024-09-17 10:42] LABS: Partial Thromboplastin Time 26.3 Seconds (22.0-36.0); Prothrombin Time 10.8 Seconds (9.0-12.2)
[2024-09-17 10:54] LABS: HCG,Qualitative Serum Negative
[2024-09-17 10:56] LABS: Anion Gap 8 (7-16); BUN/Creatinine Ratio 10 Ratio (12-20); Blood Urea Nitrogen 8 mg/dL (9-23); Calcium 9.6 mg/dL (8.3-10.6); Chloride 102 mMol/L (98-107); Creatinine (Component) 0.8 mg/dL (0.6-1.3); Estimated Creatinine Clearance 111.9 mL/min (>60); Glucose 96 mg/dL (74-106); Osmolality,Calculated 273 (275-295); Potassium 4.8 mMol/L (3.4-5.1); Sodium 138 mMol/L (136-145); eGFR > 60 See Note
[2024-09-18] VITALS (8 sets, daily range): BP systolic 120–166; BP diastolic 66–104; PULSE 54–105; RESP 13–17; TEMP 36.8–36.9; O2SAT 98–100; BMI 29.1
[2024-09-18] MEDS: RINGERS LACTATED 1000 ML 1,000 ML 20 ML IV (09:16)
--- NOTE | 2024-09-18 11:47 | PD.SUROPNT ---
Date of Procedure 09/18/24 Pre Op Diagnosis Acute cholecystitis, congenital umbilical hernia Post Op Diagnosis Same Procedure Laparoscopic cholecystectomy, primary repair of umbilical hernia Findings Gallbladder encased in fat, small umbilical hernia Procedure Description After discussion of risks and benefits, patient was brought to the operating room, SCDs were placed and general anesthesia was induced. She received preoperative antibiotics and was prepped and draped in the usual sterile fashion. After timeout an umbilical incision was made with a #15 blade directly over patient's known congenital umbilical hernia. The adjacent skin was elevated with towel clamps and a Veress needle was placed through the incision. Proper positioning was confirmed with a drop test and the abdomen was insufflated to 15 mmHg. The Veress needle was then exchanged for a 5 mm camera using a Visiport technique. There were no signs of injury from the point of entry. 3 additional ports were placed under direct vision, one 5 mm at the right anterior axillary line, one 5mm right subcostal and one 12mm at the epigastrium. Patient was placed in reverse Trendelenburg. The fundus of the gallbladder was grasped and retracted cephalad. There were some omental attachments to the body of the gallbladder which were taken down with a combination of blunt dissection and electrocautery. The infundibulum was grasped and retracted laterally. The critical view of safety was achieved and the cystic duct and cystic artery were clipped and transected in the usual fashion. There was very small accessory artery overlying the cystic triangle which was also clipped and transected in the usual fashion. The gallbladder was removed from the gallbladder bed using electrocautery and the specimen was removed in an Endo Catch bag via the epigastric port. The gallbladder bed was examined and hemostasis was achieved with electrocautery. The umbilical hernia was closed primarily using a 0 Vicryl suture in a Cirilo-Kelsie. The epigastric fascia was then closed with a 0 Vicryl suture using a Cirilo-Kelsie. Pneumoperitoneum was released and ports were removed under direct vision. Incisions were irrigated and infiltrated with half percent Marcaine for a total of 30 cc. Incisions were closed with 4 Monocryl and reinforced with Dermabond. Patient was extubated and brought to PACU in stable condition Pathology / specimen Other (Gallbladder) Estimated Blood Loss 50 Surgeon Oanh Patel MD Surgical Staff Operation Date: 09/18/24 10:45 Case Staff NETWORK DESIGN ARCHITECT: Jf Edmondson RN First Assistant: Ernesto Isaac
--- NOTE | 2024-09-18 11:52 | ESDS_ITS ---
Planned Discharge Date 09/18/24 DS: Providers Provider Primary care physician: Stacy Lozano NP Attending Provider on Admission: Oanh Patel MD Attending Provider on DC: Oanh Patel MD Discharging Provider: Oanh Patel MD Diagnosis Discharge Diagnosis (1) Acute cholecystitis: Status: Acute (2) Umbilical hernia: Status: Acute Problem List Completed Was Problem List Reviewed/Reconciled?: Yes Exam Vital Signs Temp Pulse Resp BP Pulse Ox 98.3 F 76 13 120/66 98 09/18/24 09:06 09/18/24 09:06 09/18/24 09:06 09/18/24 09:06 09/18/24 09:06 Discharge Plan Plan Patient Disposition: HOME (Self Care) Prescriptions/Referrals Prescriptions/Med Rec: New oxycodone-acetaminophen [Endocet] 5-325 mg tablet 1 tab PO Q4H MDD 6 tabs PRN (Reason: pain) Qty: 10 0RF Rx Instructions: Take 1 tablet every 4-6 hours as needed for moderate to severe pain ondansetron 4 mg tablet,disintegrating 4 mg PO Q6H PRN (Reason: nausea and vomiting) Qty: 20 0RF Rx Instructions: Take 1 tablet as needed every 6 hours for nausea No Action hydrocodone-acetaminophen 5-325 mg tablet 1 tab PO Q8H MDD 3 PRN (Reason: pain) Qty: 10 0RF venlafaxine 225 mg tablet extended release 24hr 225 mg PO DAILY Patient Comments: 1 TAB ORAL DAILY,X30 DAYS,INSTR:TAKE 1 TAB DAILY hydroxyzine HCl 25 mg tablet 25 mg PO Q8H PRN (Reason: anxiety) Patient Comments: TAKE 1/2 TO 1 TABLET BY MOUTH THREE TIMES A DAY NEEDED FOR ANXIETY lansoprazole 30 mg susp,delayed release for recon 30 mg PO DAILY buspirone 10 mg tablet 20 mg PO BID Patient Comments: TAKE 2 TABLETS BY MOUTH 2 TIMES A DAY FOR 30 DAYS. amoxicillin-pot clavulanate 875-125 mg tablet 1 tab PO Q12H ondansetron 8 mg tablet,disintegrating 8 mg PO Q8H PRN (Reason: nausea and vomiting) Referrals: Oanh Patel MD [Physician] - (You will receive a phone call to confirm a follow-up appointment with me in 2 weeks) Stacy oLzano NP [Primary Care Provider] - Patient/Caregiver Discharge Instructions Other Discharge Activity Instructions:: Avoid lifting objects greater than 10 pounds for 6 weeks You may resume showering in 2 days, on 09/20 It is okay to get your incisions wet, pat them dry after Avoid bathing or swimming for 2 weeks During the surgery you we fill your abdomen was air in order to see the structures. Some of this air tends to linger and cause pain that is referred to the shoulder as well as pain with deep breaths. This will improve with time. Being out of bed and walking helps the air to absorb faster If you develop worsening pain, nausea/vomiting, fever or jaundice please seek care in ER Education Materials: After Gallbladder Surgery, After Hernia Surgery, Preventing Surgical Site Infections Print Language: Martiniquais Stand Alone Forms: Amy Award Info., Patient Portal Info Letter Discharge Order Discharge Orders: Discharge (Routine); Ordered 09/18/24 Ordered By: Oanh Patel Results Results: Laboratory Laboratory results: results reviewed Results: Imaging CT scan - abdomen: report reviewed and image reviewed US - abdomen: report reviewed PROCEDURES: Procedure Date 09/18/24 Procedures Laparoscopic cholecystectomy, primary repair of umbilical hernia
[2024-09-18] MEDS: ONDANSETRON INJ 2 MG/ML INJ 2 ML 4 MG IVP (12:21)
[2024-09-18] MEDS: MIDAZOLAM INJ 1 MG/ML VIAL 2 ML 2 MG IVP (13:18)
--- NOTE | 2024-09-18 13:20 | SUR.PHASEII ---
pt resting in [facility] with eyes closed, breathing unlabored, dressing to abdomen clean, dry, and intact, VS stable, report from Minda RN
[2024-09-18] MEDS: PROMETHAZINE INJ 12.5 MG in SODIUM CHLORIDE 0.9% 50 ML 2.5 MG IV (13:33)
[2024-09-18] MEDS: METOCLOPRAMIDE INJ 5 MG/ML VIAL 2 ML 10 MG IVP (14:07)
--- NOTE | 2024-09-18 14:15 | SUR.PHASEII ---
report to Minda RN
--- NOTE | 2024-09-18 16:45 | SUR.PHASEI ---
1203: Pt received in [facility] via gurney. Report from Tala HOPE and Otilio [place]. Pt awake, moving about on gurney. Resp even, unlabored. VS stable. Surgical sites x4 to abdomen dry, clean, intact with no swelling, discoloration. No c/o pain. 1221: Pt became nauseated with small amount of emesis. Zofran given. 1230: Pt resting more comfortably. Stated nausea is subsiding. BP became elevated with nausea. Is coming down at this time. Resp even, unlabored. VS stable. Denies pain. Surgical sites remain dry, clean, intact with no swelling, discoloration.
--- NOTE | 2024-09-18 16:51 | SUR.PHASEII ---
1318: Pt becoming very anxious and complaining of increasing anxiety. Crying and moving about on gurney. Versed given per order. 1320: Report to Neftali HOPE.
--- NOTE | 2024-09-18 16:53 | SUR.PHASEII ---
1415: Assumed care. Report from outgoing RN stated pt received Promethazine and Reglan due to returning nausea. Pt at this time is calmer resting with at bedside. BP elevated again. Has pattern of up and down. Surgical site remains dry, clean, intact. Pt did not feel confident of being discharged at this time. 1445: Pt much calmer and states she feels she can be discharged home. Nausea has subsided. BP down. 1510: Pt fully awake, oriented x3. Pt dressed and assisted to restroom. Ambulation steady. Pt and stated understanding of discharge instructions. Pt also instructed to tack picker her prescription at her pharmacy. Pt discharged from [facility] in stable condition.
== END 2024-09-18 15:10 | disposition home or self-care (01) ==
PROVIDERS: Anesthesiology; PCP Registered Nurse; Referring Provider Surgery; Visit Provider Surgery
PROC: 0FT44ZZ Resection of Gallbladder, Percutaneous Endoscopic Approach (ICD-10-PCS; CPT 47562; principal; 2024-09-18 10:30)
DX: K80.12 Calculus of gallbladder with acute and chronic cholecystitis without obstruction (principal); K42.9 Umbilical hernia without obstruction or gangrene
CPT/HCPCS: 47562; 49591; 36415; 80048; 84703; 85025; 85610; 85730; A4217; A4649; J0131; J0694; J1171; J1885; J2250; J2405; J2550; J2704; J2765; J3010; J3490; J7120; J1920

== ENCOUNTER 2024-09-18 20:49 | Emergency (ER) | payer BC, MEDICAID, SELFPAY ==
[2024-09-18 20:50] VITALS: BMI 28.7
[2024-09-18 21:07] VITALS: BP 151/92; PULSE 81; RESP 22; TEMP 36.4; O2SAT 99
[2024-09-18] MEDS: SODIUM CHLORIDE 0.9% 1000 ML 1,000 ML 999 ML IV (21:28)
[2024-09-18] MEDS: MORPHINE SULF INJ 10 MG/ML VIAL 5 MG IVP (21:30)
[2024-09-18] MEDS: DEXAMETHASONE SOD PHOS INJ 10 MG/ML VIAL IVP (21:30)
[2024-09-18] MEDS: ONDANSETRON INJ 2 MG/ML INJ 2 ML 4 MG IV (21:31)
[2024-09-18] MEDS: DiphenhydrAMINE INJ 50 MG/ML VIAL 12.5 MG IVP (21:32)
[2024-09-18] MEDS: METOCLOPRAMIDE INJ 5 MG/ML VIAL 2 ML 10 MG IVP (21:34)
--- NOTE | 2024-09-18 21:37 | PD.EDNV ---
Nausea/Vomit./Diarrhea-RME/HPI General Chief complaint: General Adult/Misc Complain Stated complaint: PAIN AND NV SP LAP RHONDA 1030 TODAY Time Seen by Provider: 09/18/24 21:09 Arrival date/time: 09/18/24 20:49 38F with history of drug/psych use presents to ED with intractable N/V after having umbilical hernia repair and lap rhonda earlier today. Patient has been unable to take her prescribed pain meds, so pain is also getting worse. Patient has urinated, but hasn't passed gas or had BM yet. Limitations: no limitations Related Data Home Medications ?Medication ?Instructions ?Recorded ?Confirmed amoxicillin 875 mg-potassium 1 tab PO Q12H 09/17/24 09/18/24 clavulanate 125 mg tablet buspirone 10 mg tablet 20 mg PO BID 09/17/24 09/18/24 hydroxyzine HCl 25 mg tablet 25 mg PO Q8H PRN anxiety 09/17/24 09/18/24 lansoprazole 30 mg oral 30 mg PO DAILY 09/17/24 09/18/24 suspension,delayed release ondansetron 8 mg disintegrating 8 mg PO Q8H PRN nausea and vomiting 09/17/24 09/18/24 tablet venlafaxine 225 mg tablet,extended 225 mg PO DAILY 09/17/24 09/18/24 release 24 hr Previous Rx's ?Medication ?Instructions ?Recorded hydrocodone 5 mg-acetaminophen 325 1 tab PO Q8H PRN pain #10 tabs 09/09/24 mg tablet metoclopramide HCl 5 mg tablet 5 mg PO BID PRN nausea and 09/18/24 (Reglan) vomiting #14 tabs ondansetron 4 mg disintegrating 4 mg PO Q6H PRN nausea and 09/18/24 tablet vomiting #20 tabs oxycodone-acetaminophen 5 mg-325 1 tab PO Q4H PRN pain #10 tabs 09/18/24 mg tablet (Endocet) Allergies Allergy/AdvReac Type Severity Reaction Status Date / Time latex Allergy Intermediate Rash Verified 09/18/24 20:56 Review of Systems Review of Systems Systems Reviewed: All systems reviewed, normal except as documented Constitutional Constitutional: Reports system reviewed and no additional complaints, except as documented, Denies fever(s) and Denies headache(s) ENT Ears, Nose, Mouth, and Throat: Denies disequilibrium and Denies headache(s) Cardiovascular Cardiovascular: Reports system reviewed and no additional complaints, except as documented, Denies chest pain and Denies dyspnea Respiratory Respiratory: Reports system reviewed and no additional complaints, except as documented, Denies cough and Denies dyspnea Gastrointestinal Gastrointestinal: Reports system reviewed and no additional complaints, except as documented, Reports as per HPI, Reports abdominal pain, Reports nausea and Reports vomiting Neurologic Neurologic: Reports system reviewed and no additional complaints, except as documented, Denies confusion, Denies disequilibrium and Denies headache(s) Psychiatric Psychiatric: Denies confusion Past Medical History Past Medical History NEUROLOGIC: Negative Neurological Disorders or Seizures CARDIAC: Negative Cardiac Disorders or Congestive Heart Failure RESPIRATORY: Negative Chronic Obstructive Pulmonary Disease (COPD) GASTROINTESTINAL: Positive Gastrointestinal Disorders and Gastroesophageal Reflux Disease; Negative Hepatitis GENITOURINARY: Positive Kidney Stones; Negative Genitourinary Disorders or Renal Disease REPRODUCTIVE: Positive Previous Pregnancies; Negative Breast Cancer MUSCULOSKELETAL: Negative Musculoskeletal Disorders ENDOCRINE: Negative Endocrine Disorders, Diabetes Mellitus Type 1 or Diabetes Mellitus Type 2 HEMATOLOGIC: Negative Blood Disorders PSYCHO/SOCIAL: Positive Depression and Anxiety OTHER HISTORY: Positive Anesthesia Reactions (extreme nausea) and Chicken Pox; Negative Hospitalization, Autoimmune Disease, Shingles, Blood Transfusions, MRSA, Clostridium Difficile, Cancer or Breast Cancer Family History FAMILY HISTORY: Positive Family Cardiac Disorders and Family Surgery; Negative Family Psychiatric Problems, Family Respiratory Disorders, Family Gastrointestinal Problems, Family Cancer or Family Anesthesia Reaction Social History SMOKING STATUS: Never smoker SUBSTANCE USE: does not use ED Exam General Limitations: Present no limitations General appearance: Present alert and in no apparent distress Head Head exam: Present atraumatic Eye Eye exam: Present normal appearance, PERRL and EOMI ENT ENT exam: Present normal exam, normal oropharynx and mucous membranes moist Neck Neck exam: Present normal inspection, full ROM and trachea midline Chest Chest inspection: Present normal inspection and symmetric chest wall rise Respiratory Respiratory exam: Present normal lung sounds bilaterally Cardiovascular Cardiovascular exam: Present regular rate, normal rhythm and normal heart sounds Abdominal Exam Abdominal exam: Present soft and normal bowel sounds Extremities Exam Extremities exam: Present normal inspection and full ROM Back Exam Back exam: Present normal inspection and full ROM Neurological Exam Neurological exam: Present alert, oriented X3 and CN II-XII intact Psychiatric Psychiatric exam: Present normal affect and normal mood Skin Skin exam: Present warm, dry, intact and normal color Course Quality Measures none Orders Category Date Time Status Insert IV NOW Care 09/18/24 21:10 Active CBC Stat Lab 09/18/24 21:30 Completed CMP [Comprehensive Metabolic Panel] Stat Lab 09/18/24 21:30 Completed Dexamethasone Inj [Decadron Inj] Med 09/18/24 21:10 Discontinued 10 mg IVP X1 ONE DiphenhydrAMINE INJ [Benadryl Inj] Med 09/18/24 21:10 Discontinued 12.5 mg IVP X1 ONE Metoclopramide Inj [Reglan Inj] Med 09/18/24 21:10 Discontinued 10 mg IVP X1 ONE Morphine Inj Med 09/18/24 21:10 Discontinued 5 mg IVP X1 ONE Ondansetron Inj [Zofran Inj] Med 09/18/24 21:10 Discontinued 4 mg IV X1 ONE Sodium Chloride 0.9% 1000 ml [Ns] 1,000 ml Med 09/18/24 21:10 Discontinued IV 999 mls/hr Vital Signs Vital signs: Vital Signs Temperature 97.6 F 09/18/24 21:07 Pulse Rate 81 09/18/24 21:07 Respiratory Rate 22 H 09/18/24 21:07 Blood Pressure 151/92 H 09/18/24 21:07 Pulse Oximetry (%) 99 09/18/24 21:07 Oxygen Delivery Method Room Air 09/18/24 21:07 O2 at 99% on RA and WNLs Nausea/Vomiting/Diarrhea MDM Narrative MDM Narrative:: 38F with history of drug/psych use presents to ED with intractable N/V after having umbilical hernia repair and lap rhonda earlier today. Patient has been unable to take her prescribed pain meds, so pain is also getting worse. Patient has urinated, but hasn't passed gas or had BM yet. Physical exam reveals healing ab surgical sites. Patient is afebrile, alert, but is actively having N/V. Significant leukocytosis, likely reactive from N/V and surgery. CMP unremarkable. Patient felt better after meds. PO challenge passed. Likely side effect of anesthesia. Patient data External records reviewed:: [facility] previous records Clinical information provided by:: patient Social determinants that could affect healthcare access:: mental health Patient has the following chronic illnesses:: psych/drug How is presenting disease/condition affected by chronic disease/condition?: exacerbated by Evaluation data The following diagnostics were reviewed and interpreted by me:: lab results Lab and/or radiology exams considered but not ordered:: ordered Interpretation Summary: above Medications / Prescriptions Medications / Prescriptions considered but not ordered:: ordered Medication administrations:: Medication Administration History Discontinued Medications Dexamethasone Sodium Phosphate (Dexamethasone Sod Phos Inj 10 Mg/Ml Vial) 10 mg IVP X1 ONE Stop: 09/18/24 21:11 Last Admin: 09/18/24 21:30 Dose: 10 mg Documented By: NANCIE Diphenhydramine HCl (Diphenhydramine Inj 50 Mg/Ml Vial) 12.5 mg IVP X1 ONE Stop: 09/18/24 21:11 Last Admin: 09/18/24 21:32 Dose: 12.5 mg Documented By: NANCIE Sodium Chloride (Ns) 1,000 mls @ 999 mls/hr IV .Q1H1M ONE Stop: 09/18/24 22:10 Last Infusion: 09/18/24 22:41 Dose: Infused Documented By: Admin: 09/18/24 21:28 Dose: 999 mls/hr Documented By: NANCIE Metoclopramide HCl (Metoclopramide Inj 5 Mg/Ml Vial 2 Ml) 10 mg IVP X1 ONE; Protocol Stop: 09/18/24 21:11 Last Admin: 09/18/24 21:34 Dose: 10 mg Documented By: NANCIE Morphine Sulfate (Morphine Sulf Inj 10 Mg/Ml Vial) 5 mg IVP X1 ONE Stop: 09/18/24 21:11 Last Admin: 09/18/24 21:30 Dose: 5 mg Documented By: NANCIE Ondansetron HCl (Ondansetron Inj 2 Mg/Ml Inj 2 Ml) 4 mg IV X1 ONE; Protocol Stop: 09/18/24 21:11 Last Admin: 09/18/24 21:31 Dose: 4 mg Documented By: NANCIE above Consultations Consultation(s) initiated? (list below): No Diagnosis Nausea Differential Diagnosis: traveler's diarrhea, food poisoning, gastroenteritis, clostridium difficile infection, drug-induced nausea and vomiting and dehydration Most likely diagnosis given after review of the tests above:: drug induced N/V Admission Indicated Admission indicated?: not indicated Admission Request Was there a request for admission?: No Disposition Plan Disposition Plan: Discharge Discharge Attestation Discharge Attestation: The patient and all family members were given an opportunity to ask questions and understood the discharge instructions. Discharge instructions specifically effects, indications for sooner follow up or return to the emergency department, and the expected course of current diagnosis. Patient condition: Stable Discharge Plan Plan Patient Disposition: HOME (Self Care) Discharge Disposition comment: Stable Prescriptions/Referrals Prescriptions/Med Rec: New metoclopramide HCl [Reglan] 5 mg tablet 5 mg PO BID PRN (Reason: nausea and vomiting) Qty: 14 0RF No Action hydrocodone-acetaminophen 5-325 mg tablet 1 tab PO Q8H MDD 3 PRN (Reason: pain) Qty: 10 0RF venlafaxine 225 mg tablet extended release 24hr 225 mg PO DAILY Patient Comments: 1 TAB ORAL DAILY,X30 DAYS,INSTR:TAKE 1 TAB DAILY hydroxyzine HCl 25 mg tablet 25 mg PO Q8H PRN (Reason: anxiety) Patient Comments: TAKE 1/2 TO 1 TABLET BY MOUTH THREE TIMES A DAY NEEDED FOR ANXIETY lansoprazole 30 mg susp,delayed release for recon 30 mg PO DAILY buspirone 10 mg tablet 20 mg PO BID Patient Comments: TAKE 2 TABLETS BY MOUTH 2 TIMES A DAY FOR 30 DAYS. amoxicillin-pot clavulanate 875-125 mg tablet 1 tab PO Q12H ondansetron 8 mg tablet,disintegrating 8 mg PO Q8H PRN (Reason: nausea and vomiting) oxycodone-acetaminophen [Endocet] 5-325 mg tablet 1 tab PO Q4H MDD 6 tabs PRN (Reason: pain) Qty: 10 0RF Rx Instructions: Take 1 tablet every 4-6 hours as needed for moderate to severe pain ondansetron 4 mg tablet,disintegrating 4 mg PO Q6H PRN (Reason: nausea and vomiting) Qty: 20 0RF Rx Instructions: Take 1 tablet as needed every 6 hours for nausea Referrals: Robert Huang MD [Primary Care Provider] - In 1 week Problem List Clinical Impression: Drug-induced nausea and vomiting Patient/Caregiver Discharge Instructions Education Materials: ED Drug Reaction, Other, ED Vomiting (Adult) Additional Instructions: Please follow-up with PCP within 24-48 hours and return immediately if symptoms worsen. Make sure to follow-up with surgeon. Your symptoms were likely from the anesthesia. Take Zofran first. If no relief, then Reglan. Print Language: Argentine Stand Alone Forms: Patient Portal Info Letter MARGOT/SIGN LETTERER Supervising Physician MARGOT/KENIA Supervising Physician: Dr. Rocha
[2024-09-18 21:56] LABS: Basophils % (Auto) 0 % (0-2.5); Eosinophils % (Auto) 0 % (0-10); Hematocrit 37.8 % (36.0-46.0); Hemoglobin 12.9 g/dL (12.0-16.0); Immature Granulocytes % (Auto) 0 % (0-0); Immature Granulocytes Auto 0.08 Thou/mm3 (0.00-0.00); Lymphocytes % (Auto) 5 % (10-50); Mean Corpuscular HGB Conc 34.1 g/dl (31.0-37.0); Mean Corpuscular Hemoglobin 30.2 pg (25.0-35.0); Mean Corpuscular Volume 89 fL (80-100); Monocytes # (Auto) 0.5 Thou/mm3 (0.0-0.8); Monocytes % (Auto) 3 % (0-12); Neutrophils # (Auto) 17.4 Thou/mm3 (1.8-7.7); Neutrophils % (Auto) 92 % (37-80); Nucleated Red Blood Cell % 0 /100 WBC (0); Platelet Count 215 Thou/mm3 (140-440); RDW Standard Deviation 39.7 fL (36.4-46.3); Red Blood Count 4.27 Miln/mm3 (4.00-5.20)
[2024-09-18 22:13] LABS: Alanine Aminotransferase 52 U/L (10-49); Albumin, Serum 4.9 gm/dL (3.5-5.0); Alkaline Phosphatase 68 U/L (46-116); Anion Gap 12 (7-16); Aspartate Amino Transferase 58 U/L (0-34); BUN/Creatinine Ratio 8 Ratio (12-20); Bilirubin,Total 0.6 mg/dL (0.3-1.2); Blood Urea Nitrogen 6 mg/dL (9-23); Calcium 9.4 mg/dL (8.3-10.6); Calcium (Corrected) 9.4 mg/dL (8.5-10.1); Carbon Dioxide 23.6 mMol/L (20.0-31.0); Chloride 99 mMol/L (98-107); Creatinine (Component) 0.8 mg/dL (0.6-1.3); Estimated Creatinine Clearance 118.8 mL/min (>60); Globulin 2.4 gm/dL (2.3-3.5); Glucose 136 mg/dL (74-106); Osmolality,Calculated 269 (275-295); Potassium 3.8 mMol/L (3.4-5.1); Sodium 135 mMol/L (136-145); Total Protein 7.3 gm/dL (5.7-8.2); eGFR > 60 See Note
[2024-09-18 23:05] VITALS: BP 134/76; PULSE 70; RESP 16; TEMP 36.4; O2SAT 96
[2024-09-18 23:25] VITALS: BP 134/76; PULSE 62; RESP 18; TEMP 37; O2SAT 96
== END 2024-09-18 23:27 | disposition home or self-care (01) ==
PROVIDERS: Physician Assistant; Emergency Provider Emergency Medicine; PCP Family Medicine
DX: R11.2 Nausea with vomiting, unspecified (principal); D72.829 Elevated white blood cell count, unspecified
CPT/HCPCS: 36415; 80053; 85025; 96361; 96374; 96375; 99284; J1100; J1200; J2270; J2405; J2765; J7030

== ENCOUNTER 2024-09-30 10:54 | Outpatient (AMB) | payer BC, MEDICAID, SELFPAY ==
[2024-09-30 11:02] VITALS: BP 134/85; PULSE 74; RESP 19; TEMP 36.6; O2SAT 95; BMI 27.3
--- NOTE | 2024-09-30 11:02 | GSCOFFNT_ITS ---
Vital Signs - [facility] 09/30/24 11:02 Height 1.78 m Height Method Stated Weight 86.806 kg Weight Measurement Method Standing Scale BMI 27.3 BP 134/85 H Blood Pressure Source Automatic Cuff Blood Pressure Location Left Upper Arm Position Sitting Respiration 19 Pulse 74 Pulse Source Monitor Temp 97.8 F Temp Source Temporal Artery Scan Pulse Oximetry (%) 95 Oxygen Delivery Method Room Air Med/Allergies Allergies & Medications Allergies latex Allergy (Intermediate, Verified 09/30/24 11:03) Rash Medication Reconciliation hydrocodone 5 mg-acetaminophen 325 mg tablet 1 tab PO Q8H PRN pain #10 tabs 09/09/24 [Rx Confirmed 09/30/24] amoxicillin 875 mg-potassium clavulanate 125 mg tablet 1 tab PO Q12H 09/17/24 [History Confirmed 09/30/24] buspirone 10 mg tablet 20 mg PO BID 09/17/24 [History Confirmed 09/30/24] hydroxyzine HCl 25 mg tablet 25 mg PO Q8H PRN anxiety 09/17/24 [History Confirmed 09/30/24] lansoprazole 30 mg oral suspension,delayed release 30 mg PO DAILY 09/17/24 [Hi story Confirmed 09/30/24] ondansetron 8 mg disintegrating tablet 8 mg PO Q8H PRN nausea and vomiting 09/17/24 [History Confirmed 09/30/24] venlafaxine 225 mg tablet,extended release 24 hr 225 mg PO DAILY 09/17/24 [History Confirmed 09/30/24] metoclopramide HCl 5 mg tablet (Reglan) 5 mg PO BID PRN nausea and vomiting #14 tabs 09/18/24 [Rx Confirmed 09/30/24] ondansetron 4 mg disintegrating tablet 4 mg PO Q6H PRN nausea and vomiting #20 tabs 09/18/24 [Rx Confirmed 09/30/24] oxycodone-acetaminophen 5 mg-325 mg tablet (Endocet) 1 tab PO Q4H PRN pain #10 tabs 09/18/24 [Rx Confirmed 09/30/24] MA Intake Visit Data Collection New Patient or Established: Established Patient (seen at [facility] within 3 years) Seen by Clinical Staff ONLY (RN/MA): No Reason for Visit:: FOLLOW UP LAB [facility] Pain Present Currently: No PCP or OBGYN visit in last 3 months: Yes Smoking Status Smoking Status: Never smoker Immunization / Flu Flu Vaccine in the Last 12 Months: No Flu Vaccine Exclusion Criteria: No Exclusion Criteria Past Medical History Past Medical History NEUROLOGIC: Negative Neurological Disorders or Seizures CARDIAC: Negative Cardiac Disorders or Congestive Heart Failure RESPIRATORY: Negative Chronic Obstructive Pulmonary Disease (COPD) GASTROINTESTINAL: Positive Gastrointestinal Disorders and Gastroesophageal Reflux Disease; Negative Hepatitis GENITOURINARY: Positive Kidney Stones; Negative Genitourinary Disorders or Renal Disease REPRODUCTIVE: Positive Previous Pregnancies; Negative Breast Cancer ENDOCRINE: Negative Endocrine Disorders, Diabetes Mellitus Type 1 or Diabetes Mellitus Type 2 HEMATOLOGIC: Negative Blood Disorders PSYCHO/SOCIAL: Positive Depression and Anxiety OTHER HISTORY: Positive Anesthesia Reactions (extreme nausea) and Chicken Pox; Negative Hospitalization, Shingles, Blood Transfusions, MRSA, Clostridium Difficile, Cancer or Breast Cancer Family History FAMILY HISTORY: Positive Family Cardiac Disorders and Family Surgery; Negative Family Psychiatric Problems, Family Respiratory Disorders, Family Gastrointestinal Problems, Family Cancer or Family Anesthesia Reaction Social History SMOKING STATUS: Smoking status: Never smoker ALCOHOL: Alcohol Intake: Never HOUSING: Housing: House LIVES WITH: Lives With: Family HPI HPI Narrative 38F s/p lap tramaine with umbilical hernia repair 09/18 here for planned follow up. Pt states she had intractable vomiting on POD 0 for which she went to ER but since then has been feeling better, now tolerating regular diet and pain is well controlled. She denies any fever or diarrhea ROS Review of Systems Systems Reviewed: All systems reviewed, normal except as documented Objective/Exam General General Appearance: alert, cooperative and well groomed Resp Respiratory exam: Absent respiratory distress Abdominal Abdominal exam: Present soft and incision (c/d/i, no erythema, no fluctuance or tenderness); Absent distention or tenderness Assessment & Plan Diagnosis / Problem List (1) Acute cholecystitis: Status: Acute Assessment & Plan: 38F s/p lap tramaine with umbilical hernia repair 09/18 here for planned follow up, recovering well overall (2) Umbilical hernia: Status: Acute Plan: Avoid strenuous activity including lifting objects >10lbs for 6 weeks postop F/u as needed Office Procedures GNS Level of Care Nursing/Assessment Patient Status: Established Patient Nursing Assessment/Reassesment: Medication Reconciliation, Update PMH in EMR and Vital Signs Coordination of Care: Complex Care and Chronic Disease 1-5, Consent,records obtained, informed consent, Education Simp Pt/Fam, Results/Orders obtained and Staff clarify orders Established Patient Charge Established Patient Point Assignment: 90 Established Patient Point Charge: Level 3 (80-115) Patient Portal Questionaires Social History Living Situation History Housing: House Tobacco History Smoking Status: Never smoker Alcohol History Alcohol Intake: Never Review of Systems Report any current symptoms Only answer those that you have currently: Past Medical History Past Medical History Have you ever been diagnosed with any of the following: Neurological Problems Seizures: No Cardiology Problems Congestive Heart Failure: No Respiratory Problems Chronic Obstructive Pulmonary Disease (COPD): No Stomache/Intestinal Problems Hepatitis: No Gastroesophageal Reflux Disease: Yes Genital/Urinary Problems Renal Disease: No Kidney Stones: Yes Reproductive Problems Breast Cancer: No Previous Pregnancies: Yes Endocrine Problems Diabetes Mellitus Type 1: No Diabetes Mellitus Type 2: No Psychologic Problems Depression: Yes Anxiety: Yes Other Problems Hospitalization: No Shingles: No Blood Transfusions: No Anesthesia Reactions: Yes (extreme nausea) MRSA: No Chicken Pox: Yes Clostridium Difficile: No Cancer: No
== END 2024-09-30 11:13 | disposition home or self-care (01) ==
LOC: HODSRG 10:54
PROVIDERS: PCP Registered Nurse; Referring Provider Registered Nurse; Supervising Provider Surgery; Visit Provider Surgery
DX: Z48.815 Encounter for surgical aftercare following surgery on the digestive system (principal)
CPT/HCPCS: 99213; G0463

== ENCOUNTER → 2024-12-06 | Outpatient (BNVA) | payer BC, MEDICAID, SELFPAY | END | disposition home or self-care (01) | PROVIDERS: PCP Registered Nurse; Referring Provider Registered Nurse; Visit Provider Urology | DX: N20.0 Calculus of kidney (principal); Z87.440 Personal history of urinary (tract) infections; E66.9 Obesity, unspecified; Z68.29 Body mass index [BMI] 29.0-29.9, adult; Z90.49 Acquired absence of other specified parts of digestive tract; K21.9 Gastro-esophageal reflux disease without esophagitis; F32.A Depression, unspecified | CPT/HCPCS: 81003; 99212; G0463 ==